=== PATIENT | female | born 1945 | race Caucasian/White ===

== ENCOUNTER → 2017-07-21 10:21 | Outpatient (CLI) | payer OTHER, SELFPAY ==
--- NOTE | 2017-07-21 | DI.MG.S_ITS ---
BILATERAL DIGITAL SCREENING MAMMOGRAM 3D/2D WITH CAD: 07/21/2017 CLINICAL: Routine screening. Comparison is made to exams dated: 03/04/2016 mammogram, 02/07/2015 mammogram, and 01/18/2014 mammogram - [facility]. The tissue of both breasts is heterogeneously dense. This may lower the sensitivity of mammography. Current study was also evaluated with a Computer Aided Detection (CAD) system. No significant masses, calcifications, or other findings are seen in either breast. There has been no significant interval change. IMPRESSION: NEGATIVE There is no mammographic evidence of malignancy. A 1 year screening mammogram is recommended. This exam was interpreted at Station ID: [id number]. NOTE: For mammograms, a report in lay terms will be sent to the patient. Approximately 15% of breast malignancies will not be visualized mammographically. In the management of a palpable breast mass, a negative mammogram must not discourage biopsy of a clinically suspicious lesion. Electronically Signed By: Mckay cano/chelsie:07/21/2017 16:45:26 letter sent: Normal Exam ACR BI-RADS Category 1: Negative 3341F
== END ==
PROVIDERS: Family Provider Family Medicine; PCP Family Medicine; Visit Provider Family Medicine
DX: Z12.31 Encounter for screening mammogram for malignant neoplasm of breast (principal); M85.851 Other specified disorders of bone density and structure, right thigh; M85.88 Other specified disorders of bone density and structure, other site; Z78.0 Asymptomatic menopausal state
CPT/HCPCS: 77063; 77067; 77080

== ENCOUNTER → 2017-08-13 07:01 | Outpatient (CLI) | payer OTHER, SELFPAY ==
[2017-08-13 07:55] LABS: Blood Urea Nitrogen 14 mg/dL (7-17); Calcium 9.3 mg/dL (8.4-10.2); Carbon Dioxide 29 mmol/L (22-32); Chloride 100 mmol/L (98-107); Cholesterol 165 mg/dL (140-199); Estimated Glomerular Filt Rate > 60.0 mL/min (>60); Glucose 86 mg/dL (80-110); HDL Cholesterol 50 mg/dL (40-60); HEMOLYSIS < 15 (0-50); LDL Cholesterol Calculated 101 mg/dL (<100); Potassium 4.3 mmol/L (3.4-5.1); Sodium 139 mmol/L (137-145); Triglycerides 70 mg/dL (35-150)
[2017-08-13 08:44] LABS: Thyroid Stimulating Hormone 1.41 uIU/mL (0.47-4.68)
== END ==
PROVIDERS: PCP Family Medicine; Visit Provider Family Medicine
DX: I10 Essential (primary) hypertension (principal)
CPT/HCPCS: 36415; 80048; 80061; 84443

== ENCOUNTER → 2017-10-25 08:21 | Outpatient (CLI) | payer OTHER, SELFPAY ==
[2017-10-25 09:35] LABS: HEMOLYSIS < 15 (0-50)
[2017-10-25 09:46] LABS: Total Iron Binding Capacity 330 ug/dL (265-497); Transferrin 267 mg/dL (206-381)
[2017-10-25 10:09] LABS: Thyroid Stimulating Hormone 2.76 uIU/mL (0.47-4.68)
[2017-10-25 10:33] LABS: Ferritin 25.3 ng/mL (11.1-264)
[2017-10-25 13:29] LABS: Iron 121 ug/dL (37-170); Percent Iron Saturation 37 % (15-50)
== END ==
PROVIDERS: PCP Family Medicine; Visit Provider Family Medicine
DX: E03.9 Hypothyroidism, unspecified (principal)
CPT/HCPCS: 36415; 82728; 83540; 83550; 84443

== ENCOUNTER 2017-11-15 07:39 | Day surgery (SDC) | payer OTHER, SELFPAY ==
--- NOTE | 2017-11-15 | PATH_ITS ---
[facility] Accession Number: [id number] . 01 Material submitted: . PART A: ANTRUM BIOPSIES PART B: GE JUNCTION BIOPSY . 02 Diagnosis: A. Stomach, Antrum, Biopsies: Antral mucosa with mild chronic gastritis. Negative for Helicobacter by immunohistochemistry. Negative for intestinal metaplasia. Negative for dysplasia and malignancy. . B. Gastroesophageal Junction, Biopsy: Ulcerated squamocolumnar junctional mucosa. A PAS stain is negative for fungal organisms. Negative for intestinal metaplasia. Negative for dysplasia and malignancy. [facility]/11/17/2017 . 02 Electronically signed: . Pearl Lopes MD, Pathologist NPI- [id number] . 01 Gross description: . Received two formalin-filled containers, both labeled with the patient's name: . A. In a container labeled antrum, the specimen consists of four 0.2-0.3 cm portions of tissue, entirely submitted in cassette A. B. In a container labeled GE junction, the specimen consists of multiple less than 0.1 cm to 0.3 cm portions of tissue, entirely submitted in cassette B. ([id number]) /FRR . 02 Microscopic: . Part A: An immunohistochemical stain was performed to evaluate for Helicobacter organisms and is negative. The control stain showed appropriate reactivity. . Part B: A PAS stain was performed to evaluate for fungal organism and is negative. The control stain showed appropriate reactivity. Additional deeper levels were also examined. . * This test was developed and its performance characteristics determined by [employer] It has not been cleared or approved by the U.S. Food and Drug Administration. The FDA has determined that such clearance or approval is not necessary. This test is used for clinical purposes. It should not be regarded as investigational or for research. . 02 Pathologist provided ICD-10: R10.9 . 02 CPT . 703989, 712344, V02964, 974253 Performed at: 01 [facility] [address] [id number] MD Mckay Moy MD Phone: [phone] Performed at: 02 [facility] [address] [place], [place] [id number] MD Cuba You MD Phone: [phone]
[2017-11-15] MEDS: SODIUM CHLORIDE 0.9% 1,000 ML 200 ML IV (09:25)
[2017-11-15 09:34] VITALS: BP 118/70; PULSE 70; RESP 20; TEMP 36.2; O2SAT 97; BMI 19.6
--- NOTE | 2017-11-15 11:33 | PM.HP.1 ---
History of Present Illness Date Patient Seen: 11/15/17 Time Patient Seen: 11:34 Chief complaint: 15001 Narrative: 72-year-old female with longstanding history of reflux disease now experiencing heartburn, retrosternal pain, and regurgitation of gastric juice throughout the day. 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 She does have some retrosternal burning at night but this is not severe. Denies any nausea or vomiting. No dysphagia or odynophagia. No fever or chills. No abdominal pain elsewhere. No unintended weight loss. Denies melena, hematochezia, or bright red blood per rectum. She presents now for ongoing evaluation. Otherwise her symptoms have not changed since initially documented on September 08, 2017. Please see that history physical examination on the chart for further details. Patient History Medical History Gastroesophageal reflux disease (Acute) Hypothyroidism (Acute) Normal coronary angiogram (Acute) Anemia (Chronic) Anxiety (Chronic ~1969) Depression (Chronic ~1969) Heavy menstrual period (Chronic ~1984) Hepatitis A (Chronic ~1967) Idiopathic cardiomyopathy (Chronic) Migraines (Chronic ~1968) Osteopenia (Chronic ~2005) Chicken pox (Resolved) Chlamydia (Resolved ~1982) Measles (Resolved) Family & Social History Social History: household members spouse Tobacco & Substance use: Smoking Status Never smoker Meds Home Medications Medication Instructions Recorded Confirmed Type losartan [Cozaar] 25 mg PO QDAY #90 tab 03/26/17 10/27/17 Rx metoprolol tartrate 25 mg tablet 25 mg PO QDAY #0 07/16/17 10/27/17 History citalopram 20 mg PO QDAY #90 tab 08/16/17 11/15/17 Rx levothyroxine 112 mcg tablet 112 mcg PO DAILY #90 tab 08/16/17 09/08/17 Rx Allergies Allergy/AdvReac Type Severity Reaction Status Date / Time No Known Drug Allergies Allergy Verified 10/27/17 09:05 Review of Systems Review of Systems All systems reviewed & are unremarkable except as noted in HPI and below Exam Vital Signs (past 8 hours): - 11/15/17 09:34 Temperature 97.2 F L Pulse Rate 70 Respiratory Rate 20 Blood Pressure 118/70 Pulse Oximetry 97 Oxygen Delivery Method Room Air Narrative Exam Narrative: Well-nourished well-developed female in no acute distress. Alert oriented x3 Sclera nonicteric Neck is supple Regular rate and rhythm Abdomen soft, nondistended, nontender Extremities show no clubbing, cyanosis, or edema Objective Labs Labs: No recent laboratory studies or radiographic studies for review. Her laboratory studies as documented August 2017 are as noted. No evidence of significant iron deficiency anemia. Assessment & Plan Plan: Assessment/Plan Narrative: 72-year-old female with reflux symptoms not currently treated with medication or other interventions. However, there is possibility of stricture or ulcer disease as well. Have recommended EGD. Technical details of the procedure discussed. Risks, benefits, alternatives explained. Risks including but not limited to sedation, aspiration, bleeding, pain, missed lesion, incomplete examination, esophageal perforation, gastric perforation, duodenal perforation, need for major abdominal surgery, need for major thoracic surgery, and all attendant risks of major surgery were discussed at length. She understands study may be nondiagnostic as well. She may require pH probe and manometry if symptoms persist. All questions answered to her satisfaction, and she voiced understanding. Consent placed on the chart. Proceed as above.
[2017-11-15] MEDS: LIDOCAINE 4% SOLN 50 ML 20 ML TOP (11:36)
[2017-11-15] MEDS: TETRACAINE/BENZOCAINE/BUTAMBEN (CETACAINE) BOTTLE 1 SPRAY TOP (11:37)
--- NOTE | 2017-11-15 11:37 | PM.PREOP ---
Pre-operative Note Interval Note Pre-op Check: Yes History & Physical Reviewed by Physician, Yes Exam Performed and Yes History & Physical exam performed today by Physician Changes: No H&P completed within 30 days and has changed as indicated here:: Patient seen and examined again today. History physical examination documented and placed on the chart. Essentially there are no changes from her initial H and P on the chart dated September 08, 2017. We will proceed with EGD today as planned. ASA Class (for procedural sedation): II
[2017-11-15] MEDS: MIDAZOLAM 5 MG/5 ML VIAL IV (11:49)
[2017-11-15] MEDS: fentaNYL 250 MCG/5 ML INJ IV (11:49)
[2017-11-15 11:55] VITALS: BP 112/66; PULSE 63; RESP 16; TEMP 36.2; O2SAT 97
--- NOTE | 2017-11-15 11:55 | P.OP.ENDO_ITS ---
Operative Date/Time/Diagnoses Date of procedure: 11/15/17 Time of procedure: 11:52 Pre-op diagnosis: Reflux disease and heartburn symptoms manifesting as chest pain Post-op diagnosis: other (Gastritis and esophagitis) Procedure & Clinicians Study performed: 1. Sedation per surgeon 2. Esophagogastroduodenoscopy with cold forceps biopsies Same procedure as scheduled: Yes Indications: 72-year-old female who presented with significant reflux symptoms. She was recommended to undergo EGD. Surgeon: Nathan Wiggins Procedure Notes SCOAP/Timeout: Yes Procedure in detail: After obtaining informed consent, the patient was brought to the GI suite and placed in the left lateral decubitus position on the examination table. After placement of appropriate monitors, the patient was given incremental doses of Versed and Fentanyl until an appropriate level of sedation was achieved. A time out was held per SCOAP protocol. A bite block was gently placed between the patient's teeth. The endoscope was lubricated and then passed into the patient's posterior oropharynx. The esophagus was cannulated under direct vision and the scope was passed to the second portion of the duodenum without difficulty. The scope was then withdrawn with careful examination of all areas of the upper GI tract and mucosa. In the stomach, the instrument was retroflexed and the GE junction examined. The scope was straightened and the procedure continued with examination of the remainder of the upper GI tract. Findings are noted above. Air was aspirated from the stomach and the endoscope gently removed from the esophagus. The patient was allowed to awaken from sedation without difficulty and taken to the post-anesthesia care unit in good condition. Scope withdrawal time: Not applicable Sedation minutes: 12 Findings: gastritis, hiatal hernia (Relatively small) and other findings ( Esophagitis at the gastroesophageal junction but otherwise normal esophagus. No evidence of stricture.) Specimen(s): other (1. Antral biopsies 2. Gastroesophageal junction biopsies) Complications: none Recommendations: Reflux diet, Prescription for (Omeprazole) and No ASA/NSAIDS Plan for aftercare: 1. Discharge to home 2. Follow up in surgery Clinic in 2 weeks Follow up: weeks (Dr. Wiggins in 2 weeks) Disposition: PACU
[2017-11-15 12:00] VITALS: BP 103/61; PULSE 64; RESP 15; O2SAT 98
[2017-11-15 12:06] VITALS: BP 114/73; PULSE 68; RESP 15; O2SAT 93
[2017-11-15 12:11] VITALS: BP 117/66; PULSE 70; RESP 14; O2SAT 95
[2017-11-15 12:22] VITALS: BP 117/69; PULSE 64; RESP 16; TEMP 36.4; O2SAT 95
== END 2017-11-15 12:38 | disposition home or self-care (01) ==
PROVIDERS: Family Provider Family Medicine; PCP Family Medicine; Visit Provider Surgery
PROC: 0DJ08ZZ Inspection of Upper Intestinal Tract, Via Natural or Artificial Opening Endoscopic (ICD-10-PCS; CPT 43235; principal; 2017-11-15 09:45)
DX: K21.0 Gastro-esophageal reflux disease with esophagitis (principal); K29.70 Gastritis, unspecified, without bleeding; K44.9 Diaphragmatic hernia without obstruction or gangrene; D64.9 Anemia, unspecified; E03.9 Hypothyroidism, unspecified; F41.9 Anxiety disorder, unspecified
CPT/HCPCS: 43239; 99152; J2250; J3010

== ENCOUNTER → 2018-07-13 11:06 | Outpatient (CLI) | payer OTHER, SELFPAY ==
[2018-07-13 12:08] LABS: Add Manual Diff / Slide Review NO; Basophils Absolute Auto 100 /uL (0-100); Basophils Percent Auto 1.3 % (0-2); Eosinophils Absolute Auto 100 /uL (0-450); Eosinophils Percent Auto 1.3 % (2-4); Hematocrit 38.6 % (36-46); Hemoglobin 13.3 g/dL (12.0-16.0); Lymphocytes Absolute Auto 1400 /uL (1100-4500); Lymphocytes Percent Auto 29.6 % (25-40); Mean Corpuscular HGB Conc 34.5 % (30-36); Mean Corpuscular Hemoglobin 30.1 PG (26-34); Mean Corpuscular Volume 87.3 fL (80-100); Monocytes Absolute Auto 300 /uL (0-900); Monocytes Percent Auto 6.5 % (3-14); Neutrophils Absolute Auto 2900 /uL (1500-7000); Neutrophils Percent Auto 61.3 % (50-75); Platelet Count 337 X10^3/uL (150-400); Red Blood Cell Count 4.43 X10^6/uL (4.0-5.2); Red Cell Distribution Width 13.7 % (11.6-14.8); White Blood Cell Count 4.8 X10^3/uL (4.5-11.0)
[2018-07-13 12:30] LABS: Alanine Aminotransferase 26 IU/L (9-52); Albumin 4.1 g/dL (3.5-5.0); Albumin Globulin Ratio 1.2 (1.0-2.8); Alkaline Phosphatase 42 U/L (38-126); Aspartate Aminotransferase 27 IU/L (14-36); Bilirubin Total 0.4 mg/dL (0.2-1.3); Blood Urea Nitrogen 14 mg/dL (7-17); Calcium 9.4 mg/dL (8.4-10.2); Carbon Dioxide 27 mmol/L (22-32); Chloride 100 mmol/L (98-107); Estimated Glomerular Filt Rate > 60.0 mL/min (>60); Globulin 3.3 g/dL (1.7-4.1); Glucose 87 mg/dL (80-110); HEMOLYSIS < 15 (0-50); Potassium 4.4 mmol/L (3.4-5.1); Sodium 137 mmol/L (137-145); Total Protein 7.4 g/dL (6.3-8.2)
[2018-07-15 12:30] LABS: Free Kappa Light Chain 22.5 mg/L (3.3-19.4); Free Kappa/ Lambda Ratio 1.29 (0.26-1.65); Free Lambda 17.4 mg/L (5.7-26.3)
== END ==
PROVIDERS: Family Provider Family Medicine; PCP Family Medicine; Visit Provider Internal Medicine Cardiovascular Disease
DX: I42.8 Other cardiomyopathies (principal); I42.0 Dilated cardiomyopathy
CPT/HCPCS: 36415; 80053; 83883; 85025

== ENCOUNTER → 2018-07-23 11:15 | Outpatient (CLI) | payer OTHER, SELFPAY ==
--- NOTE | 2018-07-23 | DI.MG.S_ITS ---
BILATERAL DIGITAL SCREENING MAMMOGRAM 3D/2D WITH CAD: 07/23/2018 CLINICAL: Routine screening. Comparison is made to exams dated: 07/21/2017 mammogram - [facility], 03/04/2016 mammogram, and 02/07/2015 mammogram - [facility]. The tissue of both breasts is heterogeneously dense. This may lower the sensitivity of mammography. Current study was also evaluated with a Computer Aided Detection (CAD) system. No significant masses, calcifications, or other findings are seen in either breast. There has been no significant interval change. IMPRESSION: NEGATIVE There is no mammographic evidence of malignancy. A 1 year screening mammogram is recommended. This exam was interpreted at Station ID: [id number]. NOTE: For mammograms, a report in lay terms will be sent to the patient. Approximately 15% of breast malignancies will not be visualized mammographically. In the management of a palpable breast mass, a negative mammogram must not discourage biopsy of a clinically suspicious lesion. Electronically Signed By: Evan ramires/chelsie:07/24/2018 14:58:40 letter sent: Normal Exam ACR BI-RADS Category 1: Negative 3341F
== END ==
PROVIDERS: Family Provider Family Medicine; PCP Family Medicine; Visit Provider Family Medicine
DX: Z12.31 Encounter for screening mammogram for malignant neoplasm of breast (principal)
CPT/HCPCS: 77063; 77067

== ENCOUNTER → 2019-01-30 07:01 | Outpatient (CLI) | payer OTHER, SELFPAY ==
[2019-01-30 07:39] LABS: Add Manual Diff / Slide Review NO; Basophils Absolute Auto 100 /uL (0-100); Eosinophils Absolute Auto 100 /uL (0-450); Eosinophils Percent Auto 3.2 % (2-4); Hematocrit 40.6 % (36-46); Hemoglobin 13.9 g/dL (12.0-16.0); Lymphocytes Absolute Auto 1300 /uL (1100-4500); Lymphocytes Percent Auto 37.3 % (25-40); Mean Corpuscular HGB Conc 34.2 % (30-36); Mean Corpuscular Hemoglobin 30.4 PG (26-34); Mean Corpuscular Volume 88.8 fL (80-100); Monocytes Absolute Auto 300 /uL (0-900); Monocytes Percent Auto 7.5 % (3-14); Neutrophils Absolute Auto 1700 /uL (1500-7000); Platelet Count 262 X10^3/uL (150-400); Red Blood Cell Count 4.57 X10^6/uL (4.0-5.2); Red Cell Distribution Width 13.9 % (11.6-14.8); White Blood Cell Count 3.5 X10^3/uL (4.5-11.0)
[2019-01-30 07:59] LABS: Alanine Aminotransferase 17 IU/L (<35); Albumin 4.1 g/dL (3.5-5.0); Albumin Globulin Ratio 1.4 (1.0-2.8); Alkaline Phosphatase 41 U/L (38-126); Aspartate Aminotransferase 22 IU/L (14-36); BUN Creatinine Ratio 22.9 (6-22); Bilirubin Total 0.5 mg/dL (0.2-1.3); Blood Urea Nitrogen 16 mg/dL (7-17); Calcium 9.5 mg/dL (8.4-10.2); Carbon Dioxide 29 mmol/L (22-32); Chloride 101 mmol/L (98-107); Cholesterol 176 mg/dL (140-199); Estimated Glomerular Filt Rate > 60.0 mL/min (>60); Globulin 2.9 g/dL (1.7-4.1); Glucose 97 mg/dL (80-110); HDL Cholesterol 46 mg/dL (40-60); HEMOLYSIS < 15 (0-50); LDL Cholesterol Calculated 108 mg/dL (<100); Sodium 137 mmol/L (137-145); Triglycerides 108 mg/dL (35-150)
[2019-01-30 08:46] LABS: Thyroid Stimulating Hormone 3.75 uIU/mL (0.47-4.68)
== END ==
PROVIDERS: Family Provider Family Medicine; PCP Family Medicine; Visit Provider Internal Medicine Cardiovascular Disease
DX: I42.0 Dilated cardiomyopathy (principal); I10 Essential (primary) hypertension
CPT/HCPCS: 36415; 80053; 80061; 83735; 84443; 85025

== ENCOUNTER → 2019-05-08 08:27 | Outpatient (CLI) | payer OTHER, SELFPAY ==
[2019-05-08 09:46] LABS: BUN Creatinine Ratio 28.6 (6-22); Blood Urea Nitrogen 20 mg/dL (7-17); Calcium 9.8 mg/dL (8.4-10.2); Carbon Dioxide 28 mmol/L (22-32); Chloride 100 mmol/L (98-107); Estimated Glomerular Filt Rate > 60.0 mL/min (>60); Glucose 93 mg/dL (80-110); HEMOLYSIS 22 (0-50); Potassium 5.2 mmol/L (3.4-5.1); Sodium 133 mmol/L (137-145)
== END ==
PROVIDERS: Family Provider Family Medicine; PCP Family Medicine; Referring Provider Internal Medicine Cardiovascular Disease; Visit Provider Internal Medicine Cardiovascular Disease
DX: I42.8 Other cardiomyopathies (principal)
CPT/HCPCS: 36415; 80048

== ENCOUNTER → 2019-05-23 08:41 | Outpatient (CLI) | payer OTHER, SELFPAY ==
[2019-05-23 09:51] LABS: Blood Urea Nitrogen 21 mg/dL (7-17); Calcium 9.1 mg/dL (8.4-10.2); Carbon Dioxide 25 mmol/L (22-32); Chloride 102 mmol/L (98-107); Estimated Glomerular Filt Rate > 60.0 mL/min (>60); Glucose 99 mg/dL (80-110); Sodium 134 mmol/L (137-145)
[2019-05-23 09:53] LABS: HEMOLYSIS 117 (0-50)
[2019-05-23 09:54] LABS: Potassium 5.2 mmol/L (3.4-5.1)
== END ==
PROVIDERS: Family Provider Family Medicine; PCP Family Medicine; Referring Provider Internal Medicine Cardiovascular Disease; Visit Provider Internal Medicine Cardiovascular Disease
DX: I42.8 Other cardiomyopathies (principal)
CPT/HCPCS: 36415; 80048

== ENCOUNTER → 2019-06-06 11:39 | Outpatient (CLI) | payer OTHER, SELFPAY ==
[2019-06-06 13:11] LABS: BUN Creatinine Ratio 19.7 (6-22); Blood Urea Nitrogen 12 mg/dL (7-17); Calcium 9.2 mg/dL (8.4-10.2); Carbon Dioxide 25 mmol/L (22-32); Chloride 98 mmol/L (98-107); Estimated Glomerular Filt Rate > 60.0 mL/min (>60); Glucose 90 mg/dL (80-110); HEMOLYSIS < 15 (0-50); Potassium 4.4 mmol/L (3.4-5.1); Sodium 131 mmol/L (137-145)
== END ==
PROVIDERS: Family Provider Family Medicine; PCP Family Medicine; Referring Provider Family Medicine; Visit Provider Family Medicine
DX: R89.9 Unspecified abnormal finding in specimens from other organs, systems and tissues (principal)
CPT/HCPCS: 36415; 80048

== ENCOUNTER → 2019-07-27 | Outpatient (CLI) | payer OTHER, SELFPAY ==
--- NOTE | 2019-07-27 | DI.MG.S_ITS ---
BILATERAL DIGITAL SCREENING MAMMOGRAM 3D/2D WITH CAD: 07/27/2019 CLINICAL: Routine screening. Comparison is made to exams dated: 07/23/2018 mammogram and 07/21/2017 mammogram - [facility]. The tissue of both breasts is heterogeneously dense. This may lower the sensitivity of mammography. Current study was also evaluated with a Computer Aided Detection (CAD) system. No significant masses, calcifications, or other findings are seen in either breast. There has been no significant interval change. IMPRESSION: NEGATIVE There is no mammographic evidence of malignancy. A 1 year screening mammogram is recommended. This exam was interpreted at Station ID: [id number]. NOTE: For mammograms, a report in lay terms will be sent to the patient. Approximately 15% of breast malignancies will not be visualized mammographically. In the management of a palpable breast mass, a negative mammogram must not discourage biopsy of a clinically suspicious lesion. Electronically Signed By: Rich granados/chelsie:07/27/2019 16:30:57 letter sent: Normal Exam ACR BI-RADS Category 1: Negative 3341F
== END ==
PROVIDERS: Family Provider Family Medicine; PCP Family Medicine; Referring Provider Family Medicine; Visit Provider Family Medicine
DX: Z12.31 Encounter for screening mammogram for malignant neoplasm of breast (principal)
CPT/HCPCS: 77063; 77067

== ENCOUNTER → 2019-11-01 16:42 | Outpatient (CLI) | payer OTHER, SELFPAY ==
--- NOTE | 2019-11-01 16:45 | DI.RAD.S_ITS ---
PROCEDURE: XR FOOT LT MIN 3V INDICATIONS: Foot pain TECHNIQUE: 3 views of the foot were acquired. COMPARISON: None. FINDINGS: Bones: No fractures or dislocations. No suspicious bony lesions. There is mild to moderate metatarsus primus varus and hallux valgus morphology with bunion formation medial 1st metatarsal head. Soft tissues: No tibiotalar joint effusion. Achilles tendon appears normal. IMPRESSION: No trauma found. Podiatry related findings with bunion formation medial 1st metatarsal head. Dictated by: Jose Charlton M.D. on 11/02/2019 at 8:31 Approved by: Jose Charlton M.D. on 11/02/2019 at 8:31
[2019-11-01 17:52] LABS: BUN Creatinine Ratio 29.2 (6-22); Blood Urea Nitrogen 21 mg/dL (7-17); Calcium 9.4 mg/dL (8.4-10.2); Carbon Dioxide 26 mmol/L (22-32); Chloride 100 mmol/L (98-107); Estimated Glomerular Filt Rate > 60.0 mL/min (>60); Glucose 98 mg/dL (80-110); HEMOLYSIS < 15 (0-50); Potassium 4.4 mmol/L (3.4-5.1); Sodium 134 mmol/L (137-145); Uric Acid 3.9 mg/dL (2.5-6.2)
[2019-11-01 17:53] LABS: C-Reactive Protein Quant < 0.5 mg/dL (<1.0)
[2019-11-01 18:17] LABS: Erythrocyte Sedimentation Rate 6 MM/HR (0-20)
== END ==
PROVIDERS: Family Provider Family Medicine; PCP Family Medicine; Referring Provider Family Medicine; Visit Provider Family Medicine
DX: M79.673 Pain in unspecified foot (principal)
CPT/HCPCS: 36415; 73630; 80048; 84443; 84550; 85651; 86140

== ENCOUNTER → 2019-12-08 14:52 | Outpatient (CLI) | payer OTHER, SELFPAY | PROVIDERS: Family Provider Family Medicine; PCP Family Medicine; Referring Provider Podiatrist; Visit Provider Podiatrist | DX: M85.88 Other specified disorders of bone density and structure, other site (principal); Z78.0 Asymptomatic menopausal state; E07.9 Disorder of thyroid, unspecified; M84.375A Stress fracture, left foot, initial encounter for fracture; Z82.62 Family history of osteoporosis | CPT/HCPCS: 77080 ==

== ENCOUNTER → 2020-07-23 09:06 | Outpatient (CLI) | payer OTHER, SELFPAY ==
[2020-07-23 09:35] LABS: Add Manual Diff / Slide Review NO; Basophils Absolute Auto 100 /uL (0-100); Basophils Percent Auto 1.2 % (0-2); Eosinophils Absolute Auto 100 /uL (0-450); Eosinophils Percent Auto 1.3 % (2-4); Hematocrit 39.6 % (36-46); Hemoglobin 13.7 g/dL (12.0-16.0); Lymphocytes Absolute Auto 1100 /uL (1100-4500); Lymphocytes Percent Auto 25.5 % (25-40); Mean Corpuscular HGB Conc 34.5 % (30-36); Mean Corpuscular Hemoglobin 30.4 PG (26-34); Mean Corpuscular Volume 88.3 fL (80-100); Monocytes Absolute Auto 300 /uL (0-900); Monocytes Percent Auto 7.7 % (3-14); Neutrophils Absolute Auto 2800 /uL (1500-7000); Neutrophils Percent Auto 64.3 % (50-75); Platelet Count 279 X10^3/uL (150-400); Red Blood Cell Count 4.49 X10^6/uL (4.0-5.2); Red Cell Distribution Width 13.3 % (11.6-14.8); White Blood Cell Count 4.4 X10^3/uL (4.5-11.0)
[2020-07-23 10:22] LABS: Alanine Aminotransferase 23 IU/L (<35); Albumin 4.2 g/dL (3.5-5.0); Albumin Globulin Ratio 1.3 (1.0-2.8); Alkaline Phosphatase 40 U/L (38-126); Aspartate Aminotransferase 30 IU/L (14-36); BUN Creatinine Ratio 23.6 (6-22); Bilirubin Total 0.2 mg/dL (0.2-1.3); Blood Urea Nitrogen 17 mg/dL (7-17); Calcium 9.5 mg/dL (8.4-10.2); Carbon Dioxide 28 mmol/L (22-32); Chloride 99 mmol/L (98-107); Estimated Glomerular Filt Rate > 60.0 mL/min (>60); Globulin 3.3 g/dL (1.7-4.1); Glucose 87 mg/dL (80-110); HEMOLYSIS < 15 (0-50); Potassium 4.4 mmol/L (3.4-5.1); Sodium 133 mmol/L (137-145); Total Protein 7.5 g/dL (6.3-8.2)
== END ==
PROVIDERS: Family Provider Family Medicine; PCP Registered Nurse; Referring Provider Podiatrist; Visit Provider Podiatrist
DX: M20.12 Hallux valgus (acquired), left foot (principal)
CPT/HCPCS: 36415; 80053; 85025

== ENCOUNTER → 2020-08-28 15:08 | Outpatient (CLI) | payer OTHER, SELFPAY ==
--- NOTE | 2020-08-28 | DI.MG.S_ITS ---
BILATERAL DIGITAL SCREENING MAMMOGRAM 3D/2D WITH CAD: 08/28/2020 CLINICAL: Routine screening. Comparison is made to exams dated: 07/27/2019 mammogram, 07/23/2018 mammogram, and 07/21/2017 mammogram - [facility]. The tissue of both breasts is heterogeneously dense. This may lower the sensitivity of mammography. Current study was also evaluated with a Computer Aided Detection (CAD) system. No significant masses, calcifications, or other findings are seen in either breast. There has been no significant interval change. IMPRESSION: NEGATIVE There is no mammographic evidence of malignancy. A 1 year screening mammogram is recommended. This exam was interpreted at Station ID: [id number]. NOTE: For mammograms, a report in lay terms will be sent to the patient. Approximately 15% of breast malignancies will not be visualized mammographically. In the management of a palpable breast mass, a negative mammogram must not discourage biopsy of a clinically suspicious lesion. Electronically Signed By: Mckay cano/chelsie:08/28/2020 15:40:13 letter sent: Normal Exam ACR BI-RADS Category 1: Negative 3341F
== END ==
PROVIDERS: Family Provider Family Medicine; PCP Registered Nurse; Referring Provider Registered Nurse; Visit Provider Registered Nurse
DX: Z12.31 Encounter for screening mammogram for malignant neoplasm of breast (principal)
CPT/HCPCS: 77063; 77067

== ENCOUNTER → 2020-09-18 08:32 | Outpatient (CLI) | payer OTHER, SELFPAY ==
[2020-09-18 09:29] LABS: COVID19 -Nasal RAPID Negative (Negative)
== END ==
PROVIDERS: Family Provider Family Medicine; PCP Registered Nurse; Referring Provider Physician Assistant; Visit Provider Physician Assistant
DX: Z01.812 Encounter for preprocedural laboratory examination (principal); Z20.822 Contact with and (suspected) exposure to COVID-19
CPT/HCPCS: 87635

== ENCOUNTER 2020-09-20 08:57 | Day surgery (SDC) | payer OTHER, SELFPAY ==
[2020-09-19 08:10] VITALS: BMI 21.1
[2020-09-20] VITALS (11 sets, daily range): BP systolic 107–156; BP diastolic 51–84; PULSE 71–87; RESP 12–20; TEMP 36.1–36.8; O2SAT 97–100; BMI 21.1
[2020-09-20] MEDS: LACTATED RINGERS 1,000 ML 100 ML IV (09:41)
--- NOTE | 2020-09-20 10:52 | P.OP_ITS ---
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 conservative measures failed to alleviate her pain and she wished to have surgical intervention at this time. We spoke of the risks, potential complications, expected outcomes. Consent was signed, no contraindications to the procedures at this time. Surgeon: Juanis Dominguez Click Yes if Unassisted: Yes Anesthesia Type: General Operative Notes Closure Type: primary Specimen(s): none sent Prosthetic devices, grafts, tissues, transplants, or devices: Matheny Lapidus plate, 4.0 cannulated screw, 3.5 non-locking screw, 2.7 locking screws x3. JAWS Nitinol staple 10 x 10 x 10mm Estimated Blood Loss (mL): 20 Tourniquet time (min): 82 Procedure in detail: The patient was brought to the operating room and placed on the operating table in the supine position. tourniquet was placed about the left thigh. Well padded appropriately aligned. After induction of general anesthesia the foot and ankle were prepped and draped in the usual aseptic manner. The tourniquet was inflated. Incision was made over the 1st metatarsal cuneiform joint extending to the 1st metatarsophalangeal joint. The incision was deepened through subcutaneous tissues being careful to identify and retract all vital neurovascular structures. All bleeders were cauterized and ligated as necessary. A capsulotomy was performed to the 1st MTPJ exposing the enlarged medial eminence. The saw was used to resect the medial eminence. A rasp was used to reduce the sharp edges of the bone. Through the same incision, a lateral release of the 1st metatarsal phalangeal joint was performed allowing the toe to have a little bit more mobility. Attention was then directed to the 1st metatarsocuneiform joint which was entered. The joint was taken down and a saw was used to resect the base of the 1st metatarsal and the distal leading edge of the medial cuneiform. This was done at a slight angle on the medial cuneiform to allow for closure of the intermetatarsal angle. It was found that the edge of the 1st metatarsal base laterally was too prominent to allow for full closure so the proximal lateral edge of the 1st metatarsal was also gently reduced of its prominence. The area was then able to be closed and the alignment was good. A drill was used to fenestrate either side of the former MC joint. The area was irrigated with copious amounts of normal sterile saline. With the aid of C-arm the guidewire was placed for temporary fixation through the 1st metatarsocuneiform joint. I was able to translate the 1st metatarsal slightly medially and plantarly to allow for better correction. It was noted to make sure that there was not a significant amount of plantar flexion distally. Next the plate was trialed and using the guide the lag screw was placed from distal lateral to proximal medial. The fusion site showed good compression and closure. The plate was then attached with the corresponding screws in the normal AO technique. This was reviewed on C-arm and noted to be strong and in appropriate alignment. At this point the decision was made to add a hallux phalangeal osteotomy to allow for the additional curvature that seem to be happening from the bone and the pole of her extensor tendon to the hallux. Dissection was carried distally at to the hallux proximal phalanx. Care was taken to identify and retract all vital neural and vascular structures. All bleeders were cauterized and ligated as necessary. A saw was used to make a cut in line with the base of the proximal phalanx just a little over a cm distal from the joint. Then a 2nd cut was made this 1 at a slight angle to allow for the correction. The small wedge of bone was able to be easily removed and gently the osteotomy was feathered to allow for good apposition and correction. The area was irrigated with copious amounts normal sterile saline. Using the standard technique the drilling was performed on either side of the closed osteotomy and staple was placed after verifying this correction on C-arm. The foot was loaded and showed good positioning. Once again after irrigation the medial 1st MTP capsule was resected and closed down and alignment with Vicryl. The tourniquet was deflated and a prompt hyperemic response was seen in the foot. Deep and subcutaneous closure was closed performed with Vicryl and nylon to the skin. The foot was dressed with a lightly compressive sterile dressing and splint in alignment. She was then placed in a postoperative shoe and transferred to PACU with vital signs stable. Post-operative Condition: stable Disposition: PACU Plan for aftercare: Following a period of postoperative monitoring the patient be discharged home on written and oral postoperative instructions including keeping the dressing dry and intact, avoiding ambulation to the foot, icing and elevating the foot when seated at home. DVT prevention techniques have been reviewed. Close to the 4th week postoperatively we will be when we have her x- rays taken.
--- NOTE | 2020-09-20 10:52 | PM.PREOP ---
Pre-operative Note COVID-19 COVID-19 status: Negative Result date/Date tested (Pos, Neg/Pending): 09/18/20 Interval Note History & Physical reviewed/Exam performed by Physician: Yes Changes to H&P: No
[2020-09-20] MEDS: CEFAZOLIN 1 GM VIAL 2 GM IV (11:10)
--- NOTE | 2020-09-20 11:27 | SUR.OPER ---
Supine on padded OR bed, head on pillow, arms secured on padded arm boards at <90 degrees abduction, legs uncrossed, safety belt at waist, tape over blanket over lower right leg, left leg draped free.
[2020-09-20] MEDS: BUPIVACAINE 0.5% (PF) VIAL 30 ML INJ (11:38)
--- NOTE | 2020-09-20 14:13 | SUR.PHASEI ---
Assumed care of pt from Christy WILSON. Pt denies pain and nausea and pt is sitting up drinking water.
--- NOTE | 2020-09-20 16:43 | SUR.PHASEII ---
Dr Dominguez in to see patient in OPD post op. Prescription given for [place] for pain.
== END 2020-09-20 15:30 | disposition home or self-care (01) ==
PROVIDERS: Family Provider Family Medicine; PCP Registered Nurse; Referring Provider Podiatrist; Visit Provider Podiatrist
PROC: 0QBP0ZZ Excision of Left Metatarsal, Open Approach (ICD-10-PCS; CPT 28292; principal; 2020-09-20 10:15)
DX: M20.12 Hallux valgus (acquired), left foot (principal); I10 Essential (primary) hypertension
CPT/HCPCS: 28297; 28298; J0690; J1100; J1885; J2250; J2405; J2704; J3010

== ENCOUNTER → 2020-11-05 08:37 | Outpatient (CLI) | payer OTHER, SELFPAY ==
[2020-11-05 11:04] LABS: BUN Creatinine Ratio 27.3 (6-22); Blood Urea Nitrogen 18 mg/dL (7-17); Calcium 9.1 mg/dL (8.4-10.2); Carbon Dioxide 28 mmol/L (22-32); Chloride 101 mmol/L (98-107); Estimated Glomerular Filt Rate > 60.0 mL/min (>60); Glucose 77 mg/dL (80-110); HEMOLYSIS < 15 (0-50); Potassium 4.4 mmol/L (3.4-5.1); Sodium 133 mmol/L (137-145)
== END ==
PROVIDERS: Family Provider Family Medicine; PCP Registered Nurse; Referring Provider Internal Medicine Cardiovascular Disease; Visit Provider Internal Medicine Cardiovascular Disease
DX: I42.8 Other cardiomyopathies (principal); I42.0 Dilated cardiomyopathy
CPT/HCPCS: 36415; 80048

== ENCOUNTER → 2021-09-04 09:29 | Outpatient (CLI) | payer OTHER, SELFPAY ==
--- NOTE | 2021-09-04 | DI.MG.S_ITS ---
BILATERAL DIGITAL SCREENING MAMMOGRAM 3D/2D WITH CAD: 09/04/2021 CLINICAL: Routine screening. Comparison is made to exams dated: 08/28/2020 mammogram, 07/27/2019 mammogram, and 07/23/2018 mammogram - [facility]. There are scattered fibroglandular elements in both breasts. Current study was also evaluated with a Computer Aided Detection (CAD) system. No significant masses, calcifications, or other findings are seen in either breast. There has been no significant interval change. IMPRESSION: NEGATIVE There is no mammographic evidence of malignancy. A 1 year screening mammogram is recommended. Based on the Tyrer Cuzick model (a risk assessment model) the patient's lifetime risk is 2.5% and her 10 year risk is 2.3%. According to the ACR, ACS, and NCCN guidelines, an annual breast MRI exam along with mammogram is recommended if the patient's lifetime risk is 20% or greater. This exam was interpreted at Station ID: [id number]. NOTE: For mammograms, a report in lay terms will be sent to the patient. Approximately 15% of breast malignancies will not be visualized mammographically. In the management of a palpable breast mass, a negative mammogram must not discourage biopsy of a clinically suspicious lesion. Electronically Signed By: Marissa campbell/chelsie:09/04/2021 12:21:53 letter sent: Normal Exam ACR BI-RADS Category 1: Negative 3341F
== END ==
PROVIDERS: Family Provider Family Medicine; PCP Registered Nurse; Referring Provider Registered Nurse; Visit Provider Registered Nurse
DX: Z12.31 Encounter for screening mammogram for malignant neoplasm of breast (principal)
CPT/HCPCS: 77063; 77067

== ENCOUNTER → 2022-09-10 09:04 | Outpatient (CLI) | payer OTHER, SELFPAY ==
--- NOTE | 2022-09-10 | DI.MG.S_ITS ---
BILATERAL DIGITAL SCREENING MAMMOGRAM 3D/2D WITH CAD: 09/10/2022 CLINICAL: Routine screening. Comparison is made to exams dated: 09/04/2021 mammogram, 08/28/2020 mammogram, and 07/27/2019 mammogram - [facility]. There are scattered areas of fibroglandular density in both breasts (category b / 25%-50% glandular tissue). Current study was also evaluated with a Computer Aided Detection (CAD) system. No significant masses, calcifications, or other findings are seen in either breast. There has been no significant interval change. IMPRESSION: NEGATIVE There is no mammographic evidence of malignancy. A 1 year screening mammogram is recommended. Based on the Tyrer Cuzick model (a risk assessment model) the patient's lifetime risk is 2.3% and her 10 year risk is 2.3%. According to the ACR, ACS, and NCCN guidelines, an annual breast MRI exam along with mammogram is recommended if the patient's lifetime risk is 20% or greater. This exam was interpreted at Station ID: [id number]. NOTE: For mammograms, a report in lay terms will be sent to the patient. Approximately 15% of breast malignancies will not be visualized mammographically. In the management of a palpable breast mass, a negative mammogram must not discourage biopsy of a clinically suspicious lesion. Electronically Signed By: Gee remy/chelsie:09/10/2022 13:05:13 letter sent: Normal Exam ACR BI-RADS Category 1: Negative 3341F
== END ==
PROVIDERS: Family Provider Family Medicine; PCP Registered Nurse; Referring Provider Registered Nurse; Visit Provider Registered Nurse
DX: Z12.31 Encounter for screening mammogram for malignant neoplasm of breast (principal)
CPT/HCPCS: 77063; 77067

== ENCOUNTER → 2023-07-29 09:58 | Outpatient (CLI) | payer OTHER, SELFPAY ==
--- NOTE | 2023-07-29 09:59 | DI.RAD.S_ITS ---
PROCEDURE: XR DEXA AXIAL SKELETON INDICATIONS: Age-related osteoporosis without current pathologi COMPARISON: [facility], , XR DEXA AXIAL SKELETON, 12/08/2019, 15:22. FINDINGS: Lumbar Spine: Bone mineral density 0.897 g/cm2, T score -1.4. Left Hip: Bone mineral density 0.722 g/cm2, T score -1.8. Left Femoral Neck: Bone mineral density 0.631 g/cm2, T score -2.0. Right Hip: Bone mineral density 0.787 g/cm2, T score -1.3. Right Femoral Neck: Bone mineral density 0.617 g/cm2, T score -2.1. Fracture Risk Calculation (when applicable): 10-year fracture risk of a major osteoporotic fracture 22% and of a hip fracture 13%. (T score greater or equal to -1.0 to: NORMAL) (T score from -1.1 to -2.4: OSTEOPENIA) (T score less than or equal to -2.5: OSTEOPOROSIS) IMPRESSION: Osteopenia Follow-up guidelines as follows: Osteoporosis: Consider a repeat DEXA and Vertebral Fracture Assessment (VFA) exam in 2 years or sooner if medically necessary, to reassess this patient's status. Osteopenia: Consider a repeat DEXA in 2-3 years to reassess this patient's status, or if there is a new clinical indication. Normal: Consider a repeat DEXA in 5 years or sooner, or if there is a new clinical indication. All treatment decisions require clinical judgment and consideration of individual patient factors, including patient preferences, comorbidities, previous drug use, risk factors not captured in the FRAX model (e.g., frailty, falls, vitamin D deficiency, increased bone turnover, interval significant decline in bone density ) and possible under- or over-estimation of fracture risk by FRAX. In addition, the NOF Guide recommends that FDA-approved medical therapies be considered in postmenopausal women and men age >= 50 years with a: * Hip or vertebral (clinical or morphometric) fracture * T-score of <=-2.5 at the spine or hip * Ten-year fracture probability by FRAX of >= 3% for hip fracture or >=20% for major osteoporotic fracture. People with diagnosed cases of osteoporosis or at high risk for fracture should have regular bone mineral density tests. For patients eligible for Medicare, routine testing is allowed once every 2 years. The testing frequency can be increased to one year for patients who have rapidly progressing disease, those who are receiving or discontinuing medical therapy to restore bone mass, or have additional risk factors. Dictated by: Evan Maya M.D. on 07/29/2023 at 17:30 Approved by: Evan Maya M.D. on 07/29/2023 at 17:32
== END ==
LOC: RAD 09:59
PROVIDERS: Family Provider Family Medicine; PCP Registered Nurse; Referring Provider Registered Nurse; Visit Provider Registered Nurse
DX: M81.0 Age-related osteoporosis without current pathological fracture (principal)
CPT/HCPCS: 77080

== ENCOUNTER → 2023-09-24 15:56 | Outpatient (CLI) | payer OTHER, SELFPAY ==
--- NOTE | 2023-09-24 15:56 | DI.MG.S_ITS ---
BILATERAL DIGITAL SCREENING MAMMOGRAM 3D/2D WITH CAD: 09/24/2023 CLINICAL: Routine screening. Comparison is made to exams dated: 09/10/2022 mammogram, 09/04/2021 mammogram, 08/28/2020 mammogram, and 07/27/2019 mammogram - [facility]. Both breasts are heterogeneously dense, which may obscure small masses (category c / 51-75% glandular tissue). Current study was also evaluated with a Computer Aided Detection (CAD) system. No significant masses, calcifications, or other findings are seen in either breast. There has been no significant interval change. IMPRESSION: NEGATIVE There is no mammographic evidence of malignancy. A 1 year screening mammogram is recommended. Based on the Tyrer Cuzick model (a risk assessment model) the patient's lifetime risk is 3.2% and her 10 year risk is 0.0%. According to the ACR, ACS, and NCCN guidelines, an annual breast MRI exam along with mammogram is recommended if the patient's lifetime risk is 20% or greater. This exam was interpreted at Station ID: [id number]. NOTE: For mammograms, a report in lay terms will be sent to the patient. Approximately 15% of breast malignancies will not be visualized mammographically. In the management of a palpable breast mass, a negative mammogram must not discourage biopsy of a clinically suspicious lesion. Electronically Signed By: Rich [email or web address]/[email or web address]:09/27/2023 08:01:41 letter sent: Normal Exam ACR BI-RADS Category 1: Negative [id number]
== END ==
PROVIDERS: Family Provider Family Medicine; PCP Registered Nurse; Referring Provider Registered Nurse; Visit Provider Registered Nurse
DX: Z12.31 Encounter for screening mammogram for malignant neoplasm of breast (principal); R92.333 Mammographic heterogeneous density, bilateral breasts
CPT/HCPCS: 77063; 77067

== ENCOUNTER → 2024-12-04 15:44 | Outpatient (CLI) | payer MEDICARE, OTHER, SELFPAY ==
--- NOTE | 2024-12-04 15:51 | DI.MG.S_ITS ---
MM screening mammo BI: 12/04/2024. BI-RADS: 1 CLINICAL: 79-year old female for bilateral screening mammogram. Tyrer-Cuzick lifetime risk of 2.1%. No personal or first-degree family history of breast cancer. PRIOR EXAMS: 09/24/2023, 09/10/2022, 09/04/2021, 08/28/2020, 07/27/2019, 07/23/2018, 07/21/2017. MAMMOGRAPHY TECHNIQUE: 2D and 3D (tomosynthesis) digital mammographic views obtained, with additional images as needed for full coverage. Current study was also evaluated with a Computer Aided Detection (CAD) system. DENSITY C. The breasts are heterogeneously dense, which may obscure small masses. MAMMOGRAPHY FINDINGS Bilateral: No suspicious mass, asymmetry, microcalcification, or other abnormality seen. IMPRESSION: * No evidence of malignancy. RECOMMENDATIONS Bilateral * Annual screening mammography. OVERALL ASSESSMENT CATEGORY BI-RADS-1: Negative. The [employer] recommends annual screening mammography beginning at age 40 for women with average risk of breast cancer. ELECTRONICALLY SIGNED: Aniya Luna M.D. on 12/07/2024 at 02:52:22 PM PT Interpreting Station ID: [id number]
== END ==
PROVIDERS: PCP Registered Nurse; Referring Provider Registered Nurse; Visit Provider Registered Nurse
DX: Z12.31 Encounter for screening mammogram for malignant neoplasm of breast (principal); R92.333 Mammographic heterogeneous density, bilateral breasts
CPT/HCPCS: 77063; 77067